=== PATIENT | female | born 1995 | race Two or more races ===

== ENCOUNTER 2024-01-28 01:11 | Emergency (ER) | payer BC, OTHER ==
[~2024-01-28] VITALS: Ht 165.1 cm; Wt 85.6 kg
[2024-01-28 01:26] VITALS: BP 125/79; PULSE 73; RESP 16; TEMP 97.3
[2024-01-28 02:10] LABS: Urine Bacteria FEW /hpf (None Seen); Urine Blood Negative /uL (Negative); Urine Clarity Clear (Clear); Urine Color Light-Yellow (Yellow); Urine Protein, UAD Negative (Negative); Urine Sperm PRESENT /hpf (None Seen); Urine Urobilinogen 3 mg/dL (Negative); Urine WBC 2 /hpf (0 - 5)
[2024-01-28] MEDS ORDERED: IBUP-1456 PO (03:21)
[2024-01-28 03:42] VITALS: O2SAT 96
[2024-01-28] MEDS: KETOROLAC TROMETH 60MG/2ML VIAL IM ONE (03:50)
== END 2024-01-28 05:17 | disposition home or self-care (01) ==
LOC: ER 01:11
DX: N94.10 Unspecified dyspareunia (principal); F17.210 Nicotine dependence, cigarettes, uncomplicated; Z79.1 Long term (current) use of non-steroidal anti-inflammatories (NSAID)
CPT/HCPCS: 81001; 81025; 99283; J1885